=== PATIENT | female | born 2000 | race Hispanic/Latino ===

== ENCOUNTER 2018-06-19 18:15 | Emergency (ER) | payer OTHER ==
[2018-06-19] MEDS ORDERED: NA CHLORIDE 0.9% 1,000 ML ONE (19:17)
[2018-06-19] MEDS ORDERED: ONDANSETRON 4 MG/2 ML VIAL ONE (19:17)
[2018-06-19 19:51] LABS: Absolute Lymphocytes (CBC) 2.2 K/uL (0.7-4.9); Absolute Monocytes 0.4 K/uL (0.1-1.3); Absolute Neutrophil 1.8 K/uL (1.8-8.0); Basophils % 0.6 % (0-1.3); Eosinophils % 7.2 % (0-4.4); Hematocrit 41.4 % (36.0-45.0); Lymphocytes % 45.8 % (15.3-44.8); MCV 93.2 fL (80-100); MPV 9.3 fL (7.6-11.3); Monocytes % 9.1 % (3.3-12.3); RBC Red Blood Cell Count 4.45 M/uL (3.86-4.86)
[2018-06-19 20:05] LABS: ALT/SGPT 33 U/L (12-78); AST/SGOT 40 U/L (15-37); Albumin 4.6 g/dL (3.4-5.0); Alkaline Phosphatase 65 U/L (45-117); BUN Blood Urea Nitrogen 15 mg/dL (7-18); Bicarbonate 26 mmol/L (21-32); Bilirubin Direct 0.3 mg/dL (0-0.2); Bilirubin Total 1.3 mg/dL (0.2-1.0); Glucose Level 75 mg/dL (74-106); Lipase 88 U/L (73-393); Potassium 3.7 mmol/L (3.5-5.1); Protein, Total 8.4 g/dL (6.4-8.2); Sodium Level 139 mmol/L (136-145)
--- NOTE | 2018-06-19 20:48 | RAD REPORT ---
EXAM DESCRIPTION: CT - Abdomen Pelvis W Contrast - 06/19/2018 8:32 pm CLINICAL HISTORY: Abdominal pain with nausea. COMPARISON: none. TECHNIQUE: Computed axial tomography of the abdomen pelvis was obtained. 100 cc Isovue-300 was admin istered intravenously. Oral contrast was not requested which limits evaluation of bowel. All CT scans are performed using dose optimization technique as appropriate and may include automated exposure control or mA/KV adjustment according to patient size. FINDINGS: The liver, spleen, pancreas, adrenal and kidneys appear unremarkable. There is no evidence of diverticulitis. An adnexal mass is not seen. 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 IMPRESSION: No acute abnormality is displayed.
[2018-06-19 21:11] LABS: Blood Morphology Comment NOT SEEN (NOT SEEN); Platelet Estimate ADEQ
[2018-06-19 21:16] LABS: Urine Blood NEGATIVE (NEG); Urine Glucose NEGATIVE (NEG); Urine Protein 1+ (NEG); Urine Specific Gravity >1.030 (1.005-1.030); Urine pH 6.5 (5.0-7.0)
--- NOTE | 2018-06-19 21:37 | RAD REPORT ---
EXAM DESCRIPTION: US - Abdomen Exam Limited - 06/19/2018 9:33 pm CLINICAL HISTORY: Abdominal pain. COMPARISON: None. FINDINGS: The gallbladder wall is not thickened. A gallstone is not seen. The biliary tree is normal caliber. IMPRESSION: Unremarkable gallbladder ultrasound.
--- NOTE | 2018-06-19 21:38 | ER ---
Nurse's Notes [facility] Name: April Menon Age: 17 yrs Sex: Female : 2000 Arrival Date: 06/19/2018 Time: 18:18 Bed 23 Private MD: Diagnosis: Nausea;Abnormal results of liver function studies Presentation: 06/19 18:22 Presenting complaint: Patient states: Bilateral flank pain for 4 days with decreased aj appetite for 5 days. Transition of care: patient was not received from another setting of care. Onset of symptoms was June 15, 2018. Risk Assessment: Do you want to hurt yourself or someone else? Patient reports no desire to harm self or others. Initial Sepsis Screen: Does the patient meet any 2 criteria? No. Patient's initial sepsis screen is negative. Does the patient have a suspected source of infection? No. Patient's initial sepsis screen is negative. Care prior to arrival: None. 18:22 Method Of Arrival: Ambulatory aj 18:22 Acuity: SAURABH 3 aj Triage Assessment: 18:23 General: Appears in no apparent distress. comfortable, Behavior is calm, cooperative, aj appropriate for age. Pain: Complains of pain in posterior aspect of right lateral abdomen, anterior aspect of right lateral abdomen, posterior aspect of left lateral abdomen and anterior aspect of left lateral abdomen. Neuro: Level of Consciousness is awake, alert, obeys commands, Oriented to person, place, time, situation, Appropriate for age. Respiratory: Airway is patent Respiratory effort is even, unlabored, Respiratory pattern is regular, symmetrical. GI: Reports anorexia. : Reports burning with urination. Derm: Skin is intact, is healthy with good turgor, Skin is pink, warm \T\ dry. normal. 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 - Social history:: Smoking status: Patient/guardian denies using tobacco. - Ebola Screening: : Patient negative for fever greater than or equal to 101.5 degrees Fahrenheit, and additional compatible Ebola Virus Disease symptoms Patient denies exposure to infectious person Patient denies travel to an Ebola-affected area in the 21 days before illness onset No symptoms or risks identified at this time. Screenin:15 Abuse screen: Denies threats or abuse. Nutritional screening: No deficits noted. tl3 Tuberculosis screening: No symptoms or risk factors identified. Fall Risk None identified. Assessment: 19:30 General: Appears in no apparent distress. comfortable, slender, well groomed, well tl3 developed, Behavior is calm, cooperative, appropriate for age. Pain: Complains of pain in abdomen and anterior aspect of left lateral abdomen and posterior aspect of left lateral abdomen and anterior aspect of right lateral abdomen and posterior aspect of right lateral abdomen. Neuro: Level of Consciousness is awake, alert, obeys commands, Oriented to person, place, time, situation, Appropriate for age. Cardiovascular: Patient's skin is warm and dry. Respiratory: No deficits noted. Airway is patent Respiratory effort is even, unlabored, Respiratory pattern is regular, symmetrical. GI: Reports intolerance of fluids, intolerance of food. GI: pt reports that she has not had anything to eat since Saturday. : Urine is cloudy. EENT: No signs and/or symptoms were reported regarding the EENT system. Derm: No signs and/or symptoms reported regarding the dermatologic system. Musculoskeletal: No signs and/or symptoms reported regarding the musculoskeletal system. 21:36 Reassessment: No changes from previously documented assessment. Patient and/or family tl3 updated on plan of care and expected duration. Pain level reassessed. Patient is alert, oriented x 3, equal unlabored respirations, skin warm/dry/pink. pt just returned from ultrasound. Vital Signs: 18:23 BP 134 / 83; Pulse 102; Resp 19; Temp 97.0; Pulse Ox 100% on R/A; Weight 44.91 kg; aj Height 5 ft. 2 in. (157.48 cm); 19:30 BP 127 / 80; Pulse 76; Resp 18; Pulse Ox 100% on R/A; tl3 20:15 BP 118 / 75; Pulse 74; Resp 18; Pulse Ox 98% on R/A; tl3 18:23 Body Mass Index 18.11 (44.91 kg, 157.48 cm) ED Course: 18:18 Patient arrived in ED. mr 18:23 Triage completed. aj 18:23 Arm band placed on left wrist. Patient placed in an exam room. aj 18:34 [facility] jr8 18:34 Srinivasa Quezada MD is Attending Physician. jr8 19:08 Sarah Beth Son, OLIMPIA is Primary Nurse. tl3 19:43 Initial lab(s) drawn, by me, sent to lab. Inserted saline lock: 20 gauge in left tl3 antecubital area, using aseptic technique. Blood collected. 20:15 Patient has correct armband on for positive identification. Placed in gown. Bed in low tl3 position. Pulse ox on. NIBP on. 20:15 No provider procedures requiring assistance completed. tl3 20:[address] via wheelchair. me 20:32 CT completed. Patient tolerated procedure well. Patient moved back from CT. nj 20:32 CT Abd/Pelvis - W/Contrast In Process Unspecified. EDMS 21:33 US Abdomen Limited In Process Unspecified. EDMS 21:36 David Perez MD is Referral Physician. jr8 22:11 IV discontinued, intact, bleeding controlled, No redness/swelling at site. Pressure tl3 dressing applied. Administered Medications: 19:42 Drug: Zofran 4 mg Route: IVP; Infused Over: 2 mins; Site: left antecubital; tl3 20:13 Follow up: Response: No adverse reaction tl3 19:42 Drug: NS 0.9% 1000 ml Route: IV; Rate: 1000 ml; Site: left antecubital; Delivery: tl3 Primary tubing; 20:45 Follow up: IV Status: Completed infusion; IV Intake: 1000ml tl3 Intake: 20:45 IV: 1000ml; Total: 1000ml. tl3 Outcome: 21:37 Discharge ordered by . jr8 22:11 Discharged to home ambulatory. tl3 22:11 Condition: stable 22:11 Discharge instructions given to patient, Instructed on discharge instructions, follow up and referral plans. medication usage, Demonstrated understanding of instructions, follow-up care, medications, Prescriptions given X 1. 22:12 Patient left the ED. tl3 Signatures: Dispatcher [employer] Marsha Talbert RN RN aj Rivera, Vero mr Anthony Sheth PA PA jr8 Suman Pirtchard Tammy, OLIMPIA RN tl3
--- NOTE | 2018-06-19 21:38 | EDPHYS ---
Physician Documentation [facility] Name: April Menon Age: 17 yrs Sex: Female : 2000 Arrival Date: 06/19/2018 Time: 18:18 Bed 23 Private MD: ED Physician Srinivasa Quezada HPI: 06/19 21:33 This 17 yrs old Female presents to ER via Ambulatory with complaints of Kidney jr8 Pain. 21:33 Onset: The symptoms/episode began/occurred gradually, 1 week(s) ago. Associated signs jr8 and symptoms: Pertinent positives: decreased appetite and nausea . Modifying factors: The patient symptoms are alleviated by nothing, the patient symptoms are aggravated by eating food. The patient has not experienced similar symptoms in the past. The patient has not recently seen a physician. Stated that her back has felt achy for the past week. Stated that she has decreased appetite and nausea feeling. When she tries to eat feels a burning sensation in stomach. Denies fevers, vomiting, or diarrhea. No recent travel . 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 - Social history:: Smoking status: Patient/guardian denies using tobacco. - Ebola Screening: : Patient negative for fever greater than or equal to 101.5 degrees Fahrenheit, and additional compatible Ebola Virus Disease symptoms Patient denies exposure to infectious person Patient denies travel to an Ebola-affected area in the 21 days before illness onset No symptoms or risks identified at this time. ROS: 21:33 Eyes: Negative for injury, pain, redness, and discharge, ENT: Negative for injury, jr8 pain, and discharge, Neck: Negative for injury, pain, and swelling, Cardiovascular: Negative for chest pain, palpitations, and edema, Respiratory: Negative for shortness of breath, cough, wheezing, and pleuritic chest pain, MS/Extremity: Negative for injury and deformity, Skin: Negative for injury, rash, and discoloration, Neuro: Negative for headache, weakness, numbness, tingling, and seizure. 21:33 Abdomen/GI: Positive for abdominal pain, nausea, Negative for vomiting, diarrhea, abdominal cramps, abdominal distension, anorexia, dysphagia, hematemesis, black/tarry stool, rectal pain, rectal bleeding, bowel incontinence, flatulence. 21:33 Back: Positive for pain at rest. Exam: 21:33 Eyes: Pupils equal round and reactive to light, extra-ocular motions intact. Lids and jr8 lashes normal. Conjunctiva and sclera are non-icteric and not injected. Cornea within normal limits. Periorbital areas with no swelling, redness, or edema. ENT: Nares patent. No nasal discharge, no septal abnormalities noted. Tympanic membranes are normal and external auditory canals are clear. Oropharynx with no redness, swelling, or masses, exudates, or evidence of obstruction, uvula midline. Mucous membranes moist. Neck: Trachea midline, no thyromegaly or masses palpated, and no cervical lymphadenopathy. Supple, full range of motion without nuchal rigidity, or vertebral point tenderness. No Meningismus. Cardiovascular: Regular rate and rhythm with a normal S1 and S2. No gallops, murmurs, or rubs. Normal PMI, no JVD. No pulse deficits. Respiratory: Lungs have equal breath sounds bilaterally, clear to auscultation and percussion. No rales, rhonchi or wheezes noted. No increased work of breathing, no retractions or nasal flaring. Abdomen/GI: Soft, non-tender, with normal bowel sounds. No distension or tympany. No guarding or rebound. No evidence of tenderness throughout. Back: No spinal tenderness. No costovertebral tenderness. Full range of motion. Skin: Warm, dry with normal turgor. Normal color with no rashes, no lesions, and no evidence of cellulitis. MS/ Extremity: Pulses equal, no cyanosis. Neurovascular intact. Full, normal range of motion. Neuro: Awake and alert, GCS 15, oriented to person, place, time, and situation. Cranial nerves II-XII grossly intact. Motor strength 5/5 in all extremities. Sensory grossly intact. Cerebellar exam normal. Normal gait. Vital Signs: 18:23 BP 134 / 83; Pulse 102; Resp 19; Temp 97.0; Pulse Ox 100% on R/A; Weight 44.91 kg; aj Height 5 ft. 2 in. (157.48 cm); 19:30 BP 127 / 80; Pulse 76; Resp 18; Pulse Ox 100% on R/A; tl3 20:15 BP 118 / 75; Pulse 74; Resp 18; Pulse Ox 98% on R/A; tl3 18:23 Body Mass Index 18.11 (44.91 kg, 157.48 cm) aj MDM: 18:34 Patient medically screened. jr8 21:33 Data reviewed: vital signs, nurses notes, lab test result(s), radiologic studies, CT jr8 scan, ultrasound, and as a result, I will discharge patient. Data interpreted: Pulse oximetry: on room air is 98 %. Interpretation: normal. Counseling: I had a detailed discussion with the patient and/or guardian regarding: the historical points, exam findings, and any diagnostic results supporting the discharge/admit diagnosis, lab results, radiology results, the need for outpatient follow up, a sock boarder, to return to the emergency department if symptoms worsen or persist or if there are any questions or concerns that arise at home. Response to treatment: the patient's symptoms have markedly improved after treatment. ED course: Discussed with family the labs and imaging. No acute imaging findings. Mild elevation in LFT's. Want her to f/u with GI. Family and patient good with this . 06/19 18:34 Order name: Basic Metabolic Panel; Complete Time: 20:08 [facility] 06/19 18:34 Order name: CBC with Diff; Complete Time: 21:13 [facility] 06/19 18:34 Order name: Creatinine for Radiology; Complete Time: 20:08 [facility] 06/19 18:34 Order name: Hepatic Function; Complete Time: 20:08 8 06/19 18:34 Order name: Lipase; Complete Time: 20:08 8 06/19 19:00 Order name: [place] Screen Profile; Complete Time: 21:11 [facility] 06/19 19:48 Order name: Urine Dipstick--Ancillary (enter results); Complete Time: 21:28 ms 06/19 20:09 Order name: CT Abd/Pelvis - W/Contrast; Complete Time: 21:11 8 06/19 21:11 Order name: Manual Differential; Complete Time: 21:13 EDMS 06/19 21:13 Order name: US Abdomen Limited; Complete Time: 21:43 8 06/19 18:34 Order name: IV Saline Lock; Complete Time: 19:43 jr8 06/19 18:34 Order name: Labs collected and sent; Complete Time: 19:43 8 06/19 18:34 Order name: Urine Test (obtain specimen); Complete Time: 19:43 jr8 06/19 18:34 Order name: Urine Dipstick-Ancillary (obtain specimen); Complete Time: 19:43 jr8 Administered Medications: 19:42 Drug: Zofran 4 mg Route: IVP; Infused Over: 2 mins; Site: left antecubital; tl3 20:13 Follow up: Response: No adverse reaction tl3 19:42 Drug: NS 0.9% 1000 ml Route: IV; Rate: 1000 ml; Site: left antecubital; Delivery: tl3 Primary tubing; 20:45 Follow up: IV Status: Completed infusion; IV Intake: 1000ml tl3 Disposition: 06/19/18 21:37 Discharged to Home. Impression: Nausea, Abnormal results of liver function studies. - Condition is Stable. - Discharge Instructions: Nausea, Adult, Upper Endoscopy. - Prescriptions for Zofran 4 mg Oral Tablet - take 1 tablet by ORAL route every 12 hours As needed; 20 tablet. - Medication Reconciliation Form, Thank You Letter, Antibiotic Education, Prescription Opioid Use form. - Follow up: David Perez MD; When: 2 - 3 days; Reason: Recheck today's complaints, Continuance of care, Re-evaluation by your physician. - Problem is new. - Symptoms have improved. Addendum: 06/21/2018 20:56 Co-signature as Attending Physician, Srinivasa Quezada MD. r n Signatures: Dispatcher [employer] [facility] Marsha Freire RN RN aj Nieto, Roman, MD MD rn Roszak, Josh, PA PA jr8 Sarah Beth Son RN RN tl3 Corrections: (The following items were deleted from the chart) 06/19 21:11 20:01 CBC Smear Scan ordered. [facility] 22:12 21:37 06/19/2018 21:37 Discharged to Home. Impression: Nausea; Abnormal results of tl3 liver function studies. Condition is Stable. Forms are Medication Reconciliation Form, Thank You Letter, Antibiotic Education, Prescription Opioid Use. Follow up: David Perez; When: 2 - 3 days; Reason: Recheck today's complaints, Continuance of care, Re-evaluation by your physician. Problem is new. Symptoms have improved. jr8
== END 2018-06-19 22:12 | disposition home or self-care (01) ==
LOC: ER 18:15
DX: R94.5 Abnormal results of liver function studies (principal); F90.9 Attention-deficit hyperactivity disorder, unspecified type
CPT/HCPCS: 36415; 74177; 76705; 80048; 80076; 81003; 83690; 85025; 86308; 96361; 96374; 99284; J2405; J7030; Q9967